=== PATIENT | male | born 1940 | race Caucasian/White ===

== ENCOUNTER → 2016-12-02 | Outpatient (CLI) | payer MEDICARE, BC | END | disposition home or self-care (01) | LOC: PCVCCLINIC 11:13 | PROVIDERS: ATTEND Internal Medicine | DX: I35.0 Nonrheumatic aortic (valve) stenosis (principal); I10 Essential (primary) hypertension; I73.9 Peripheral vascular disease, unspecified; E78.5 Hyperlipidemia, unspecified; E11.9 Type 2 diabetes mellitus without complications; K86.1 Other chronic pancreatitis; K86.81 Exocrine pancreatic insufficiency; Z79.4 Long term (current) use of insulin; Z87.891 Personal history of nicotine dependence; Z79.899 Other long term (current) drug therapy; Z88.1 Allergy status to other antibiotic agents | CPT/HCPCS: 80061; 93005; G0463 ==

== ENCOUNTER → 2016-12-04 | Outpatient (CLI) | payer MEDICARE, BC ==
[~2016-12-04] MED LIST: CLOPIDOGREL BISULFATE 75 MG TABLET ONE
--- NOTE | 2016-12-04 23:02 | PCVCIMAG ---
EXAM: AORTOILIAC DUPLEX INDICATION: Peripheral arterial disease FINDINGS: AORTA: Suprarenal aorta measures maximum diameter of 2.3 cm. There is not a fusiform infrarenal aortic aneurysm. The infrarenal aorta measures maximum diameter of 1.9 cm. No aortic stenosis. RIGHT COMMON ILIAC ARTERY: Maximum diameter is 1.3 cm. No significant stenosis. RIGHT EXTERNAL ILIAC ARTERY: No significant stenosis. LEFT COMMON ILIAC ARTERY: Maximum diameter is 1.1 cm. No significant stenosis. LEFT EXTERNAL ILIAC ARTERY: No significant stenosis. IMPRESSION: No abdominal aortic aneurysm. No aortoiliac stenosis seen. LOC:OFFICE
--- NOTE | 2016-12-04 23:07 | PCVCIMAG ---
EXAM: BILATERAL LOWER EXTREMITY ARTERIAL DUPLEX INDICATION: Peripheral Arterial Disease. Leg pain. FINDINGS: Right Leg: Satisfactory arterial waveforms in the common femoral and profunda femoral artery. Elevated systolic velocity of 420 cm/s mid superficial femoral artery consistent with 90% stenosis. There is occlusion of the distal popliteal artery, tibioperoneal trunk, anterior tibial, posterior tibial, and peroneal arteries. Left Leg: Satisfactory arterial waveforms in the common femoral and profunda femoral arteries. Minimal stenosis proximal/mid superficial femoral artery. Popliteal artery is patent. The anterior tibial and peroneal arteries are patent. Occlusion of the mid/distal posterior tibial artery. IMPRESSION: 90% stenosis mid right superficial femoral artery. Occlusion of the distal right popliteal artery, right anterior tibial artery, right posterior tibial artery, and right peroneal artery. Occlusion mid/distal left posterior tibial artery. LOC:OFFICE
== END | disposition home or self-care (01) ==
LOC: PCVCIMAG 09:51
PROVIDERS: ATTEND Internal Medicine
DX: I70.201 Unspecified atherosclerosis of native arteries of extremities, right leg (principal); I77.89 Other specified disorders of arteries and arterioles; I34.0 Nonrheumatic mitral (valve) insufficiency; I35.0 Nonrheumatic aortic (valve) stenosis; I10 Essential (primary) hypertension; E11.9 Type 2 diabetes mellitus without complications; E78.5 Hyperlipidemia, unspecified; Z79.4 Long term (current) use of insulin; Z87.440 Personal history of urinary (tract) infections; Z87.891 Personal history of nicotine dependence; Z88.2 Allergy status to sulfonamides
CPT/HCPCS: 93925; 93978; G0463

== ENCOUNTER → 2016-12-09 | Outpatient (CLI) | payer MEDICARE, BC ==
[~2016-12-09] MED LIST changes: -CLOPIDOGREL BISULFATE 75 MG TABLET ONE; +DIAZEPAM 10 MG TABLET. ONE; +EPTIFIBATIDE BOLUS 2,000 MCG/ML 10ML VIAL. IV ONE; +HEPARIN SODIUM 5,000 UNIT/ML VIAL for PCVC. ONE; +IODIXANOL 270 MG/ML 100 ML VIAL. ONE; +IV NORMAL SALINE 1000ML BAG 1,000 ML ONE; +IV NORMAL SALINE 500ML BAG 500 ML ONE; +LIDOCAINE 1% Multi-Dose 20 ML VIAL. ONE; +MIDAZOLAM HCL/PF 2 MG/2 ML VIAL. ONE; +VANCOMYCIN 1GM IVPB FOR OMNI 250 ML ONE; +fentaNYL PF VIAL 100 MCG/2 ML VIAL ONE
--- NOTE | 2016-12-10 11:28 | PCVCINTER ---
EXAM: 1. AORTOGRAM AND BILATERAL LOWER EXTREMITY RUNOFF ANGIOGRAM 2. BILATERAL RENAL ANGIOGRAPHY 3. RIGHT EXTERNAL ILIAC ARTERY STENT PLACEMENT. 4. PROXIMAL RIGHT SUPERFICIAL FEMORAL ARTERY DRUG COATED BALLOON ANGIOPLASTY 5. RIGHT POPLITEAL ARTERY ATHERECTOMY AND DRUG COATED BALLOON ANGIOPLASTY 6. SECONDARY THROMBECTOMY RIGHT POPLITEAL ARTERY. 7. RIGHT ANTERIOR TIBIAL ARTERY ATHERECTOMY AND CHOCOLATE BALLOON ANGIOPLASTY INDICATION: Peripheral arterial disease. Coronary artery disease. Nonhealing ulcer right lower extremity. Hypertension. Renal atherosclerosis. PROCEDURE: Procedure and risks of angiography intervention is appropriate including limb loss stroke and were discussed with the patient's family and consent obtained. The patient's left groin was prepped abnormal sterile fashion. IV conscious sedation was used to procedure with appropriate monitoring for 90 minutes. Ultrasound was used to interrogate the left groin and showed the left common femoral artery to be patent. A permanent spot film was obtained. Under ultrasound guidance access into the left common femoral artery was obtained and a 5 Maori sheath was placed. Through this a 5 Maori flush catheter was placed into the abdominal aorta at the level of the renal arteries and AP aortogram was performed. Catheter was positioned at the aortic bifurcation and both oblique views of the pelvis were obtained. Catheter was positioned into the left external iliac artery and left leg runoff angiography was performed. Catheter was exchanged for a visceral catheter was placed into the right renal arteries and right renal angiograms obtained. Catheter was placed into the the left renal arteries and left renal angiograms were obtained. Catheter was advanced to the level of the right external iliac artery and right leg runoff angiography was obtained. Patient was given 4500 units of heparin. A 6 Maori crossover sheath was placed via the left groin to the level of the right common femoral artery. Atherectomy of the right popliteal artery and right proximal anterior tibial artery was performed with 0.9 mm [employer] laser atherectomy catheter in the standard fashion. Following atherectomy small areas of thrombus were observed and because of this secondary thrombectomy throughout the right popliteal artery was carried out with mechanical suction thrombectomy catheter in the standard fashion. Minimal debris was removed. Next angioplasty utilizing a 3.0 x 120 mm calculus focal force SAW BOSS catheter throughout the areas of stenosis in the right popliteal artery and proximal right anterior tibial artery was carried out. Following this drug coated balloon angioplasty of the right proximal superficial femoral artery was carried out with a 5 x 40 M-Dot [employer] Admiral SAW BOSS catheter. Stent placement across the areas of high-grade stenosis in the right external iliac artery was carried out with a 10 x 40 Cordis Smart stent with subsequent dilatation to 8.0 mm. Follow-up angiogram was performed. Catheters and wires removed. Sheath was removed and hemostasis obtained using the Exoseal device. No immediate complications. FINDINGS: Aortogram: There is one right and one left renal artery. Infrarenal abdominal aorta shows mild plaque without significant stenosis. Pelvis: Mild plaque right common iliac artery without significant stenosis. Small areas of ulcerated plaque left common iliac artery does not cause significant stenosis or dilatation. 80% eccentric extrinsic stenosis mid right external iliac artery. Left external iliac artery shows satisfactory patency. Moderate plaque both common femoral arteries left greater than right does not cause flow-limiting stenosis. The right and left profunda femoral arteries are patent. Right renal artery: Mild plaque proximal vessel does not cause significant stenosis. No branch vessel stenosis. Left renal artery: Mild plaque proximal vessel does not cause significant stenosis. No branch vessel stenosis. Right le% focal stenosis proximal superficial femoral artery. Superficial femoral artery then shows good patency. Segmental occlusion throughout a diffusely diseased popliteal artery. The peroneal artery and posterior tibial arteries are occluded. 90% stenosis proximal anterior tibial artery. Anterior tibial artery is in a dominant runoff vessel in the foot. Left leg: Moderate scattered plaque throughout the superficial femoral artery and popliteal artery without flow-limiting stenosis. Moderate scattered stenoses throughout the anterior tibial artery. Peroneal artery is patent. Posterior tibial artery is occluded. Right external iliac artery: Following procedure as above vessel shows good patency. Right proximal superficial femoral artery: Following procedure as above vessel shows good patency. Right popliteal artery: Following procedure as above satisfactory patency has been restored. Right anterior tibial artery: Following procedure as above satisfactory patency has been restored. IMPRESSION: High-grade stenosis right external iliac artery and proximal superficial femoral artery with segmental occlusion right popliteal artery and high-grade stenosis right proximal anterior tibial artery were all treated as above with satisfactory patency restored. Bilateral infrapopliteal occlusive disease as detailed above. follow up LOC:[id number]
== END | disposition home or self-care (01) ==
LOC: PCVCINTER 09:21
PROVIDERS: ATTEND Nuclear Medicine Nuclear Cardiology
DX: I70.238 Atherosclerosis of native arteries of right leg with ulceration of other part of lower leg (principal); I10 Essential (primary) hypertension; I70.1 Atherosclerosis of renal artery; I25.10 Atherosclerotic heart disease of native coronary artery without angina pectoris
CPT/HCPCS: 36252; 37186; 37221; 37225; 37229; 75716; 76937; 99152; 99153; C1725; C1751; C1757; C1760; C1769; C1876; C1885; C1894; C2623; J1327; J1644; J2250; J3010; J3370; J7030; J7040; Q9966

== ENCOUNTER → 2016-12-28 | Outpatient (CLI) | payer MEDICARE, BC ==
--- NOTE | 2016-12-28 17:12 | PCVCIMAG ---
APPROVED REPORT Indications Amaurosis Fugax Stenosis Risk Factors Hypertension: Hyperlipidemia CAD, Diabetes, Doppler Spectral Velocity Analysis PSV / EDVPSV / EDV ECA (R) 148 / 9 cm/sECA (L) 134 / 4 cm/s dICA (R) 131 / 28 cm/sdICA (L) 73 / 14 cm/s Elizabeth (R) 116 / 21 cm/smICA (L) 127 / 29 cm/s pICA (R) 121 / 28 cm/spICA (L) 118 / 29 cm/s Bulb (R) 81 / 10 cm/sBulb (L) 66 / 12 cm/s dCCA (R) 77 / 10 cm/sdCCA (L) 83 / 8 cm/s mCCA (R) 86 / 13 cm/smCCA (L) 98 / 14 cm/s Vert (R) 71 / 13 cm/sVert (L) 56 / 8 cm/s ICA/CCA 1.50ICA/CCA 1.53 Basic Measurements Blood Pressure: Pulses: Right Left RightLeft Brachial(Sitting) 160/[id number]/76mmHgTemporal Real Time B-Mode Imaging Vert. (R)AntegradeVert. (L)Antegrade Findings The right carotid bulb has moderate calcified plaque. The right proximal internal carotid artery shows 40-50% stenosis. The right common carotid artery shows no significant stenosis. The right external carotid artery shows no significant stenosis. The left carotid bulb has moderate plaque. The left proximal internal carotid artery shows 40-50% stenosis. The left common carotid artery shows no significant stenosis. The left external carotid artery shows no significant stenosis. Conclusion 1. Right internal carotid artery stenosis (40-50%) 2. Left internal carotid artery stenosis (40-50%) 3. Antegrade vertebral flow
== END | disposition home or self-care (01) ==
LOC: PCVCIMAG 15:23
PROVIDERS: ATTEND Nuclear Medicine Nuclear Cardiology
DX: I65.23 Occlusion and stenosis of bilateral carotid arteries (principal); I10 Essential (primary) hypertension; E78.5 Hyperlipidemia, unspecified; E11.9 Type 2 diabetes mellitus without complications; I73.9 Peripheral vascular disease, unspecified; I34.0 Nonrheumatic mitral (valve) insufficiency; Z79.4 Long term (current) use of insulin
CPT/HCPCS: 93880

== ENCOUNTER → 2017-03-15 | Outpatient (CLI) | payer MEDICARE, BC ==
--- NOTE | 2017-03-15 15:03 | PCVCIMAG ---
EXAM: RIGHT LOWER EXTREMITY ARTERIAL DUPLEX INDICATION: Peripheral Arterial Disease. Leg pain. FINDINGS: Right Leg: Satisfactory arterial waveforms in the common femoral and profunda femoral artery and throughout the superficial femoral artery without flow-limiting stenosis. There has been reocclusion of the distal portion of the popliteal artery. Unchanged occlusion of the posterior tibial artery and peroneal artery. The anterior tibial artery is patent throughout. IMPRESSION: Since prior procedure there has been reocclusion of the distal aspect of the right popliteal artery. The right anterior tibial artery is patent. Unchanged occlusion of the right peroneal and right posterior tibial arteries. LOC:[id number]
== END | disposition home or self-care (01) ==
LOC: PCVCIMAG 13:36
PROVIDERS: ATTEND Nuclear Medicine Nuclear Cardiology
DX: I73.9 Peripheral vascular disease, unspecified (principal); I77.1 Stricture of artery; I10 Essential (primary) hypertension; I65.23 Occlusion and stenosis of bilateral carotid arteries; E78.00 Pure hypercholesterolemia, unspecified; E11.9 Type 2 diabetes mellitus without complications; I77.9 Disorder of arteries and arterioles, unspecified; Z79.4 Long term (current) use of insulin; Z87.891 Personal history of nicotine dependence; Z88.8 Allergy status to other drugs, medicaments and biological substances; Z79.899 Other long term (current) drug therapy
CPT/HCPCS: 93926; G0463

== ENCOUNTER → 2017-04-28 | Outpatient (CLI) | payer MEDICARE, BC ==
--- NOTE | 2017-04-28 13:24 | PCVCIMAG ---
EXAM: RIGHT LOWER EXTREMITY ARTERIAL DUPLEX INDICATION: Peripheral Arterial Disease. Leg pain. FINDINGS: Right Leg: Satisfactory waveforms in the common femoral profunda femoral artery and throughout the superficial femoral artery without flow-limiting stenosis. There is unchanged occlusion of the distal right popliteal artery. Unchanged occlusion of the posterior tibial artery and peroneal artery. The anterior tibial artery is patent throughout. IMPRESSION: Unchanged occlusion of the distal right popliteal artery Unchanged occlusion of the right peroneal and posterior tibial arteries. LOC:[id number]
== END | disposition home or self-care (01) ==
LOC: PCVCIMAG 12:10
PROVIDERS: ATTEND Nuclear Medicine Nuclear Cardiology
DX: I73.9 Peripheral vascular disease, unspecified (principal); M79.605 Pain in left leg; M79.604 Pain in right leg; I77.9 Disorder of arteries and arterioles, unspecified; I10 Essential (primary) hypertension; E11.9 Type 2 diabetes mellitus without complications; E78.00 Pure hypercholesterolemia, unspecified; Z79.4 Long term (current) use of insulin; Z87.891 Personal history of nicotine dependence; Z79.899 Other long term (current) drug therapy
CPT/HCPCS: 93926; G0463

== ENCOUNTER → 2017-08-03 | Outpatient (CLI) | payer MEDICARE, BC | END | disposition home or self-care (01) | LOC: PCVCCLINIC 11:19 | DX: I10 Essential (primary) hypertension (principal); I35.0 Nonrheumatic aortic (valve) stenosis; E78.00 Pure hypercholesterolemia, unspecified; I77.9 Disorder of arteries and arterioles, unspecified; E11.9 Type 2 diabetes mellitus without complications; R94.31 Abnormal electrocardiogram [ECG] [EKG]; Z79.4 Long term (current) use of insulin; Z87.891 Personal history of nicotine dependence; Z79.899 Other long term (current) drug therapy | CPT/HCPCS: 80061; 93005; G0463 ==

== ENCOUNTER → 2017-08-17 | Outpatient (CLI) | payer MEDICARE, BC | END | disposition home or self-care (01) | LOC: PCVCIMAG 08:45 | DX: I11.0 Hypertensive heart disease with heart failure (principal); I50.32 Chronic diastolic (congestive) heart failure; E78.00 Pure hypercholesterolemia, unspecified; I77.9 Disorder of arteries and arterioles, unspecified; E11.9 Type 2 diabetes mellitus without complications; I08.3 Combined rheumatic disorders of mitral, aortic and tricuspid valves; J90 Pleural effusion, not elsewhere classified; Z79.4 Long term (current) use of insulin; Z87.891 Personal history of nicotine dependence; Z79.899 Other long term (current) drug therapy | CPT/HCPCS: 36415; 93005; 93306; G0463 ==

== ENCOUNTER → 2017-08-25 | Outpatient (CLI) | payer MEDICARE, BC | END | disposition home or self-care (01) | LOC: PCVCCLINIC 08:29 | DX: I11.0 Hypertensive heart disease with heart failure (principal); I50.32 Chronic diastolic (congestive) heart failure; E78.00 Pure hypercholesterolemia, unspecified | CPT/HCPCS: 36415 ==

== ENCOUNTER → 2017-09-16 | Outpatient (CLI) | payer MEDICARE, BC | END | disposition home or self-care (01) | LOC: PCVCIMAG 13:51 | DX: I65.23 Occlusion and stenosis of bilateral carotid arteries (principal); I11.0 Hypertensive heart disease with heart failure; I50.32 Chronic diastolic (congestive) heart failure; I34.0 Nonrheumatic mitral (valve) insufficiency; E78.00 Pure hypercholesterolemia, unspecified; E11.9 Type 2 diabetes mellitus without complications; R94.31 Abnormal electrocardiogram [ECG] [EKG]; Z79.4 Long term (current) use of insulin; Z87.891 Personal history of nicotine dependence; Z79.899 Other long term (current) drug therapy | CPT/HCPCS: 93005; 93880; G0463 ==

== ENCOUNTER → 2017-12-16 | Outpatient (CLI) | payer MEDICARE, BC | END | disposition home or self-care (01) | LOC: PCVCCLINIC 14:21 | DX: I11.0 Hypertensive heart disease with heart failure (principal); I50.32 Chronic diastolic (congestive) heart failure; I35.0 Nonrheumatic aortic (valve) stenosis; E78.00 Pure hypercholesterolemia, unspecified; I65.23 Occlusion and stenosis of bilateral carotid arteries; E11.9 Type 2 diabetes mellitus without complications; Z88.8 Allergy status to other drugs, medicaments and biological substances; Z87.891 Personal history of nicotine dependence; Z79.899 Other long term (current) drug therapy | CPT/HCPCS: 93005; G0463 ==

== ENCOUNTER → 2018-06-16 | Outpatient (CLI) | payer MEDICARE, BC ==
--- NOTE | 2018-06-16 18:03 | PCVCIMAG ---
EXAM: BILATERAL LOWER EXTREMITY ARTERIAL DUPLEX INDICATION: Peripheral Arterial Disease. Leg pain. FINDINGS: Right Leg: Common femoral and profunda femoral arteries are patent. Superficial femoral artery showing adequate patency throughout. Proximal/mid popliteal artery remains patent. Unchanged occlusion of the distal most popliteal artery, peroneal artery, tibioperoneal trunk, and posterior tibial artery. There is refilling of the anterior tibial artery without additional stenosis seen. Left Leg: Common femoral profunda femoral arteries are patent. Mild stenosis hoopa mid and distal superficial femoral artery. Popliteal artery is patent. Anterior tibial and peroneal arteries are patent. Posterior tibial artery is occluded throughout. IMPRESSION: Unchanged occlusion distal right popliteal artery, tibioperoneal trunk, peroneal artery, and posterior tibial artery. Mild stenosis hoopa mid/distal left superficial femoral artery. Unchanged occlusion left posterior tibial artery. LOC:[place] [id number]
== END | disposition home or self-care (01) ==
LOC: PCVCIMAG 13:56
PROVIDERS: ATTEND Nuclear Medicine Nuclear Cardiology
DX: E11.51 Type 2 diabetes mellitus with diabetic peripheral angiopathy without gangrene (principal); I11.0 Hypertensive heart disease with heart failure; I50.32 Chronic diastolic (congestive) heart failure; I35.0 Nonrheumatic aortic (valve) stenosis; I65.23 Occlusion and stenosis of bilateral carotid arteries; E78.5 Hyperlipidemia, unspecified; Z87.891 Personal history of nicotine dependence
CPT/HCPCS: 36415; 80061; 93005; 93925; G0463

== ENCOUNTER → 2018-12-14 | Outpatient (CLI) | payer MEDICARE, BC ==
--- NOTE | 2018-12-14 09:52 | PCVCIMAG ---
APPROVED REPORT Indications Stenosis Risk Factors Hypertension: Hyperlipidemia Diabetes, Doppler Spectral Velocity Analysis PSV / EDVPSV / EDV ECA (R) 108 / 6 cm/sECA (L) 95 / 5 cm/s dICA (R) 106 / 14 cm/sdICA (L) 58 / 12 cm/s Elizabeth (R) 118 / 16 cm/smICA (L) 143 / 32 cm/s pICA (R) 105 / 14 cm/spICA (L) 98 / 13 cm/s Bulb (R) 79 / 17 cm/sBulb (L) 71 / 18 cm/s dCCA (R) 86 / 10 cm/sdCCA (L) 94 / 11 cm/s mCCA (R) 96 / 16 cm/smCCA (L) 95 / 22 cm/s Vert (R) 94 / 14 cm/sVert (L) 65 / 10 cm/s ICA/CCA 1.52 ICA/CCA 1.22 Basic Measurements Blood Pressure: Pulses: Right Left RightLeft Brachial(Sitting) 104/04udNj359/62mmHgTemporal Real Time B-Mode Imaging Vert. (R)AntegradeVert. (L)Antegrade Findings The right carotid bulb has moderate plaque. The right proximal internal carotid artery shows <40% stenosis. The right common carotid artery shows no significant stenosis. The right external carotid artery shows no significant stenosis. The left carotid bulb has mild plaque. The left proximal internal carotid artery shows 40-50% stenosis. The left common carotid artery shows no significant stenosis. The left external carotid artery shows no significant stenosis. Conclusion 1. Right internal carotid artery stenosis (<40%) 2. Left internal carotid artery stenosis (40-50%) 3. Antegrade vertebral flow Comparison of the study dated September 2017, no significant differences were identified.
--- NOTE | 2018-12-14 12:36 | PCVCIMAG ---
APPROVED REPORT Study performed: 12/14/2018 10:32:36 EXAM: Comprehensive 2D, Doppler, and color-flow Echocardiogram Patient Location: Echo lab Status: routine BSA: 1.83 HR: 55 bpmBP: 110/62 mmHg Rhythm: Bradycardia Risk Factors: Cardiac Risk Factors: HTN, DM Indications Congestive Heart Failure Bradycardia aortic stenosis, mitral regurgitation 2D Dimensions IVSd: 13.42 (7-11mm)LVOT Diam: 21.58 (18-24mm) LVDd: 47.41 mm PWd: 13.71 (7-11mm)Ascending Ao: 37.37 (22-36mm) LVDs: 34.62 (25-40mm) Left Atrium: 52.42 (27-40mm) Aortic Root: 36.53 mm LV Single Plane 4CH: 64.75 % LV Single Plane 2CH: 54.66 % Biplane EF: 60.6 % Volumes Left Atrial Volume (Systole) Single Plane 4CH: 118.46 mLSingle Plane 2CH: 120.88 mL LA ESV Index: 67.00 mL/m2 Aortic Valve AoV Peak Checo.: 2.81 m/s AO Peak Gr.: 31.58 mmHgLVOT Max P.65 mmHg AO Mean Gr.: 18.18 mmHgLVOT Mean P.43 mmHg AO V2 Mean: 2.06 m/sLVOT Max V: 0.81 m/s AO V2 VTI: 78.90 cmLVOT Mean V: 0.56 m/s JULIAN (VTI): 1.04 [id number] V1 VTI: 22.53 cm JULIAN Vmax: 1.06 cm2 SV (LVOT): 82.37 mL Mitral Valve MV Peak Gr.: 6.86 mmHg MV Mean Gr.: 1.92 mmHgE/A Ratio: 2.9 MV Decel. Time: 256.86 ms MV E Max Checo.: 1.44 m/s MV A Checo.: 0.49 m/s MV Max Checo.: 1.31 m/s MV Mean Checo.: 0.62 m/s MV VTI: 427.99 mm MVA VTI: 192.45 mm2 MV PHT: 121.70 ms MVA (PHT): 1.81 cm2 IVRT: 69.20 ms Pulmonary Valve PV Peak Checo.: 0.92 m/sPV Peak Gr.: 3.37 mmHg Pulmonary Vein P Vein S: 0.38 m/sP Vein A: 0.35 m/s P Vein D: 1.00 m/sP Vein A Dur.: 173.0 msec P Vein S/D Ratio: 0.38 Tricuspid Valve TR Peak Checo.: 3.21 m/s TR Peak Gr.: 41.17 mmHg TV Vmax: 0.65 m/s Left Ventricle The left ventricle is normal size. There is normal LV segmental wall motion. Mild concentric left ventricular hypertrophy. Left ventricular systolic function is normal. The left ventricular ejection fraction is within the normal range. LVEF is 60-65%. Severe diastolic dysfunction Right Ventricle The right ventricle is normal size. The right ventricular systolic function is normal. Atria Left atrium is severely dilated. Right atrium is severely dilated. Aortic Valve The aortic valve is moderately to severely calcified. Trace aortic regurgitation. There is moderate valvular aortic stenosis. Calculated aortic valve area is 1.1 cm2 with maximum pressure gradient of 32 mmHg and mean pressure gradient of 18 mmHg. Mitral Valve Moderate mitral annular calcification Moderate to moderately severe mitral regurgitation No evidence of mitral valve stenosis. Tricuspid Valve The tricuspid valve is normal in structure. Mild to moderate tricuspid regurgitation with PAP of 45 mmHg. Pulmonic Valve The pulmonary valve is normal in structure. Trace pulmonic regurgitation. Great Vessels The aortic root is normal in size. IVC is normal in size and collapses >50% with inspiration. Pericardium There is no pericardial effusion. There is no pleural effusion. <Conclusion> Left ventricular systolic function is normal. There is normal LV segmental wall motion. LVEF is 60-65%. Severe diastolic dysfunction Both atria are severely dilated. The aortic valve is moderately to severely calcified. Moderate valvular aortic stenosis. Calculated aortic valve area is 1.1 cm2 with maximum pressure gradient of 32 mmHg and mean pressure gradient of 18 mmHg. Moderate mitral annular calcification. Moderate to moderately severe mitral regurgitation Mild to moderate tricuspid regurgitation with pulmonary artery pressure of 45 mmHg. There is no pericardial effusion.
== END | disposition home or self-care (01) ==
LOC: PCVCIMAG 09:21
PROVIDERS: ATTEND Internal Medicine
DX: I65.23 Occlusion and stenosis of bilateral carotid arteries (principal); I08.3 Combined rheumatic disorders of mitral, aortic and tricuspid valves; I73.9 Peripheral vascular disease, unspecified; J90 Pleural effusion, not elsewhere classified; E78.5 Hyperlipidemia, unspecified; Z87.891 Personal history of nicotine dependence; Z88.8 Allergy status to other drugs, medicaments and biological substances
CPT/HCPCS: 36415; 80061; 93005; 93306; 93880; G0463